=== PATIENT | female | born 1945 | race Caucasian/White ===

== ENCOUNTER 2016-11-16 05:39 | Inpatient (IN) | payer OTHER ==
[2016-11-08 12:58] LABS: BASOPHILS 0.9 %; BASOPHILS ABSOLUTE 0.09 10/3/uL (0.0-0.16); HEMATOCRIT 42.5 % (36.0-48.0); HEMOGLOBIN 13.7 g/dL (12.0-16.0); IMMATURE GRANULOCYTES 0.2 %; IMMATURE GRANULOCYTES ABSOLUTE 0.02 10/3/uL (0.0-0.11); LYMPHOCYTES ABSOLUTE 3.03 10/3/uL (0.67-4.30); MEAN CORPUS HGB CONC 32.2 g/dL (32.0-36.0); MEAN CORPUSCULAR HEMOGLOB 29.7 pg (26.0-34.0); MEAN PLATELET VOLUME 9.8 fL (9.2-13.0); MONOCYTES 6.1 %; NEUTROPHILS 59.8 %; NEUTROPHILS ABSOLUTE 5.84 10/3/uL (2.02-8.40); PLATELET COUNT 303 10/3/uL (150-400); RBC DISTRIBUTION WIDTH 14.3 % (12.0-16.0); RED CELL COUNT 4.62 10/6/uL (4.0-5.6); WHITE BLOOD CELLS 9.8 10/3/uL (4.5-10.5)
[2016-11-08 12:59] LABS: MANUAL DIFF NO %
[2016-11-08 13:06] LABS: INTERNATIONAL NORMAL RATI 1.1 UNITS (-); PARTIAL THROMBO TIME 32.1 SEC (22.5-37.2); PROTIME (NOT ORD) 13.7 SEC (12.0-14.5)
[2016-11-08 13:28] LABS: ALBUMIN 3.5 G/DL (3.5-5.0); BUN (BLOOD UREA NITROGEN) 9 MG/DL (6-23); CALCIUM, SERUM 8.8 MG/DL (8.5-10.4); CHLORIDE, SERUM 109 MMOL/L (96-112); CO2 (CARBON DIOXIDE) 29 MMOL/L (24-34); CREATININE 0.72 MG/DL (0.55-1.02); GFR AFRICAN AMERICAN 96 ML/MIN (>=60); GFR NON AFRICAN AMERICAN 83 ML/MIN (>=60); GLOBULIN 3.4 G/DL (2.5-4.1); GLUCOSE, SERUM 90 MG/DL (60-99); POTASSIUM, SERUM 3.7 MMOL/L (3.5-5.3); SGOT(AST) 14 U/L (5-40); SGPT(ALT) 17 U/L (5-65); SODIUM, SERUM 142 MMOL/L (135-148); TOTAL BILIRUBIN 0.4 MG/DL (0-1.2); TOTAL PROTEIN 6.9 G/DL (6.0-8.5)
[2016-11-08 13:29] LABS: ALKALINE PHOSPHATASE 82 U/L (45-117)
--- NOTE | ~2016-11-16 | DS ---
Discharge Summary [facility] [address] [place]. [address] NAME: GALILEO ALVA : 41 STATUS : DIS IN PAT#: [id number] AGE: 71 ADM/REG DATE : 11/16/16 MR#: [id number] REPORT SERV DATE: 12/01/16 DICTATED BY: ROSI BRANTLEY III DATE: 12/01/16 REPORT STATUS : Draft TRANSCRIBED BY: KWAME DATE: 12/01/16 Data Collection from hospitalization DISCHARGE DIAGNOSES: 1. 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 2. 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 3. Former smoker. 4. Chronic obstructive pulmonary disease. CONSULTATIONS: None. PROCEDURES PERFORMED: Laparoscopic resection of the terminal ileum with appendectomy, and primary anastomosis on 11/16/2016. PATHOLOGY: Terminal ileum resection-Crohn's disease, resection margins negative, incidental appendectomy-no diagnostic change. DISCHARGE MEDICATIONS: Tylenol 1000 mg every six hours as needed, Fosamax 70 mg every seven days, Biotin capsule one daily, Caltrate +D 1200 mg daily, vitamin D 50,000 units weekly, Advair Diskus one puff via inhaler twice a day, and Percocet 7.5/325 one tablet three times a day as needed. CONDITION AT DISCHARGE: Stable. DISPOSITION: The patient was discharged home on a full liquid diet that would be advanced as tolerated and activities as instructed. She would follow up with me on 12/06/2016. She was to follow up with her primary care physician as needed. HOSPITAL COURSE: This is a 71-year-old female, who was recently found to have a severe stricture of the terminal ileum with a mass like affect. It was of concern that this could represent a primary malignancy. The patient had been asymptomatic in terms of pain and abdominal discomfort. It was felt that laparoscopic resection of the involved portion of ileum, possible laparotomy, and possible resection of the proximal right colon was indicated. She agreed to proceed and was admitted to the hospital at this time for further evaluation and treatment. Upon admission, she was taken to the operating room where she underwent the above-mentioned procedure. She tolerated this well. There were no complications. On postop day #1, she had no new complaints. She was alert and comfortable. She was started on clear liquids. Addison catheter was going to be removed. On 11/18/2016, she had no new complaints. She was tolerating clear liquids well. She was progressing well. We were going to advance her diet. She was evaluated by Physical Therapy. On 11/19/2016, she did have some nausea and vomiting. Her abdomen was soft. Reglan was given. She was held n.p.o. Discharge planning was performed. She was beginning to pass some gas. NG tube was removed. Clear liquids were started. Reglan was continued. On 11/21/2016, she was wanting to go home. She was passing stool and tolerating her diet. Discharge instructions were given. Due to her improved and stable condition, she was discharged home with the above-stated instructions. Discharge Summary [place] [id number] [facility] [place] [address] NAME: GALILEO ALVA : 41 STATUS : DIS IN PAT#: [id number] AGE: 71 ADM/REG DATE : 11/16/16 MR#: [id number] REPORT SERV DATE: 12/01/16 DICTATED BY: ROSI BRANTLEY III DATE: 12/01/16 REPORT STATUS : Draft TRANSCRIBED BY: KWAME DATE: 12/01/16 Information collected by: Le Stanley I submit the above information as my discharge summary. TG/KWAME Rosi Brantley III, M.D. / [id number] CC: Kirill Lucas III, M.D.
--- NOTE | ~2016-11-16 | OP ---
Record Of Operation [facility] [address] [place]. [address] NAME: GALILEO ALVA : 41 STATUS : ADM IN PAT#: [id number] AGE: 71 ADM/REG DATE : 11/16/16 MR#: [id number] REPORT SERV DATE: 11/16/16 DICTATED BY: ROSI BRANTLEY III DATE: 11/16/16 REPORT STATUS : Draft TRANSCRIBED BY: MODL DATE: 11/16/16 DATE OF PROCEDURE: 11/16/2016 PREOPERATIVE DIAGNOSIS: Mass of the terminal ileum with stricture. POSTOPERATIVE DIAGNOSIS: Mass of the terminal ileum with stricture, severe inflammatory bowel disease of terminal ilium. PROCEDURE: Laparoscopic resection of the terminal ilium with appendectomy, and primary anastomosis. SURGEON: Rosi Brantley M.D. ANESTHESIA: General with intubation. COMPLICATIONS: None. ESTIMATED BLOOD LOSS: 30 mL. SPECIMENS: Segment of terminal ileum and appendix. DRAINS: [place] in subcutaneous tissue. LAP AND SPONGE COUNT: Correct x3. BRIEF HISTORY: This 71-year-old female was recently found to have a severe stricture of the terminal ilium with a masslike affect. It was of concern that this could represent a primary malignancy. The patient was asymptomatic in terms of pain and abdominal discomfort. It was felt that laparoscopic resection of the involved portion of the ilium, possible laparotomy, possible resection of the proximal right colon was indicated. This procedure, the risks, benefits, and alternatives, including but not limited to the risk for bleeding, infection, enterotomy, injury to any abdominal structure, postop small bowel obstruction, ileus, incisional hernia, dehiscence, anastomotic leak, requiring reoperation with ileostomy, ureteral injury, possible need for laparotomy, and unforeseen complications including deep venous thrombosis, pulmonary embolus, myocardial infarction, stroke, pneumonia, and were fully and completely explained to the patient and family at length prior to the surgery. The fact that this was a major operation with risk for major morbidity and mortality was explained as well as expected length of recovery with both open and laparoscopic procedures. The patient and family had questions, which were answered. They fully understood the risks and agreed to the surgery as planned. FINDINGS: The patient had a large mass of the terminal ileum. The involved segment was some 10 cm in length. The segment of the terminal ileum was very thickened with mesentery, which was foreshortened, and with fat wrapping around the area all consistent with severe inflammatory bowel disease. There was no evidence for peritoneal implants or carcinomatosis. This appeared to be consistent with probable Crohn's disease. The margins Record Of Operation [facility] [address] [place]. [address] NAME: GALILEO ALVA : 41 STATUS : ADM IN PAT#: [id number] AGE: 71 ADM/REG DATE : 11/16/16 MR#: [id number] REPORT SERV DATE: 11/16/16 DICTATED BY: ROSI BRANTLEY III DATE: 11/16/16 REPORT STATUS : Draft TRANSCRIBED BY: MODLiseth DATE: 11/16/16 were clear grossly. An appendectomy was incidentally performed. DESCRIPTION OF PROCEDURE: After being properly identified and after appropriate bowel preparation at home, and after discussing the risks and benefits of the surgery with the patient and family again in the preoperative area, she was taken to the operating room, and placed in supine position on the operating room table. General anesthesia was administered, and she was intubated without difficulty. A Addison catheter was inserted. The abdomen was prepped and draped sterilely in the usual fashion. After an appropriate "time-out" per JCAHO standards, a small incision was made just below the umbilicus transversely. The skin and fascia on either sides were elevated with towel clips. A Veress needle was placed through the incision into the peritoneal cavity. Correct position of the needle in peritoneal cavity was confirmed by the hanging drop test. The abdominal cavity was then insufflated to about 13 mmHg with carbon dioxide. Correct position of air in the peritoneal cavity was confirmed by palpation. The Veress needle was removed and replaced with a 10 mm trocar. The laparoscope was placed through this. The patient was rotated slightly to her left. A 5 mm trocar was placed in the midline, midway between the umbilicus and xiphoid process, under direct vision with the laparoscope, another 5 mm trocar was placed in the suprapubic area, also under direct vision with the laparoscope. The abdomen was inspected. The right colon and cecum appeared to be normal. We identified an area of the distal ilium which was markedly abnormal. It was very thickened and hard and inflamed. No other abnormalities were noted. There was no evidence for carcinomatosis or peritoneal implants. The liver was normal. The appropriate instruments were placed through the trocars. The cecum was grasped and retracted medially. Using sharp dissection, peritoneal reflection to the right colon proximally was divided along the line of [place]. The colon was mobilized medially. The terminal ileum was also mobilized by dividing the peritoneal reflection in the right lower quadrant. After adequate mobilization was obtained, a small vertical incision was made along the right lateral abdominal wall just above the terminal ileum. The trocars were removed. The incision was continued through the subcutaneous tissue. Hemostasis was controlled with the cautery. The incision was continued through all layers of fascia. The terminal ileum was mobilized into the wound. The above findings were confirmed. There was a defined definite segment terminal ileal about 8 cm to 10 cm in length, which was hard, markedly thickened and inflamed with fat wrapping around it all consistent with probable inflammatory bowel disease. The distal ileum appeared to be spared, about 4 cm to 5 cm proximal to the ileocecal valve. The proximal small bowel was inspected to the ligament of Treitz, and the remainder of the bowel was normal with no other abnormalities noted. We then selected a point for division of the terminal ileum proximal and distal to this inflammatory mass. A window was made in the mesentery to the ileum proximally and distally, and a DEISY stapler was used to divide the ileum proximally and distally at these points. The distal division was about 4 cm to 5 cm proximal to the ileocecal valve which we felt we could preserve if frozen section revealed this to be a benign process. The mesentery to this portion of small bowel was then divided along its base, using Harmonic scalpel. This was done along the base of the mesentery to perform a correct oncologic dissection of the lymphovascular supply to this portion of the terminal ileum in the event Record Of Operation [place] [id number] [facility] [address] [address] NAME: GALILEO ALVA : 41 STATUS : ADM IN PAT#: [id number] AGE: 71 ADM/REG DATE : 11/16/16 MR#: [id number] REPORT SERV DATE: 11/16/16 DICTATED BY: ROSI BRANTLEY III DATE: 11/16/16 REPORT STATUS : Draft TRANSCRIBED BY: MODL DATE: 11/16/16 that this was malignant. The terminal ileum was thus removed and oriented with a suture distally. This was sent to Pathology and interpreted as being benign process. We then performed a functional end-to-end anastomosis in a [id number] fashion between the divided terminal ileum proximally, and the terminal ileum just proximal to the ileocecal valve. This was performed by aligning the antimesenteric border of the small bowel proximally and distally with interrupted 3-0 silk sutures. A small opening was then made in the antimesenteric border of the small bowel proximally and distally. A DEISY stapler was placed through this and fired. The defect created by the stapler was then closed with a TA- 60 stapler. This staple line was oversewn with interrupted 3-0 silk sutures. Upon completion of this, the "crotch" anastomosis was secured with 3-0 silk sutures. The mesenteric defect was closed with a running 3-0 chromic suture. Upon completion of this, the anastomosis was widely patent to palpation. It was not twisted or kinked in any way. It was not under any tension. Again, the staple line was oversewn with interrupted 3-0 silk sutures. The appendix was then mobilized. Although, it was normal and it was felt that removal of this was indicated. The mesoappendix was divided using the Harmonic scalpel. The appendix was then divided at its base with a GI stapler. The appendiceal stump was inverted with 3-0 silk sutures. The entire area was irrigated copiously with saline. Hemostasis was assured. This was reduced back into the abdominal cavity. Hemostasis was completely assured. The fascia of this incision was closed with a running looped #1 PDS suture in two layers. The subcutaneous tissue was closed with a running 3-0 chromic suture over a Rk drain, which was brought out through the inferior aspect of the incision. The fascia of the infraumbilical incision was closed with a 0 Vicryl suture. All skin incisions were closed with running subcuticular 4-0 Monocryl stitches. They were injected with 0.5% Marcaine. Dressings were applied. Anesthesia was reversed, and the patient was taken to the recovery room in stable condition. She tolerated the procedure well. Her family was informed the results of the surgery. The patient will remain in the hospital for postoperative care. TYLER/KWAME Rosi Brantley III, M.D. / [id number] CC: Kirill Lucas III, M.D.
--- NOTE | ~2016-11-16 | PREOPHP ---
PreOp History and Physical [address] [place]. [address] NAME: GALILEO MILTON : 41 STATUS : PRE IN PAT#: [id number] AGE: 71 ADM/REG DATE : MR#: [id number] REPORT SERV DATE: 11/15/16 DICTATED BY: ROSI BRANTLEY III DATE: 10/28/16 REPORT STATUS : Draft TRANSCRIBED BY: MODL DATE: 10/28/16 HISTORY OF PRESENT ILLNESS: This 71-year-old female comes to the operating room for laparoscopic small bowel resection, possible laparotomy, for a stricture of the distal small bowel. The patient recently had a CT scan of the abdomen and pelvis for evaluation of hematuria. This CT scan showed an abnormal loop of distal small bowel. Further workup including small bowel series shows a stricture of the distal small bowel. The patient has minimal symptoms. She has occasional lower abdominal pain. This stricture is very abnormal and has a concern for a possible malignancy versus inflammatory bowel disease. It was felt that resection of this area was indicated for both diagnostic and therapeutic reasons. The patient has had no nausea, vomiting, fever, chills. Because of the concerns radiographically regarding this lesion, the patient comes now for laparoscopic small bowel resection, possible laparotomy, involving the distal small bowel and possibly the proximal right colon. PAST MEDICAL HISTORY: Unremarkable otherwise. MEDICATIONS: Vitamins. FAMILY HISTORY: Unremarkable. PAST SURGICAL HISTORY: None. SOCIAL HISTORY: The patient has history of tobacco abuse. ALLERGIES: NONE. REVIEW OF SYSTEMS: The patient has a history of weight loss and kidney stones. PHYSICAL EXAMINATION: GENERAL: Reveals a female, in no acute distress. She is alert and oriented x3. VITAL SIGNS: Blood pressure 125/79, pulse 96, temperature 97. HEENT: Unremarkable. NEUROLOGIC: Cranial nerves 2 through 12 were normal. LUNGS: Clear. CARDIAC: Normal. ABDOMEN: Soft and nontender. EXTREMITIES: Normal. LABORATORY DATA: Small bowel series shows a narrowed segment of distal ileum just proximal to the terminal ileum. There is associated mucosal irregularity involving this narrowed segment, which appears to be approximately 15-20 cm in length. The ileal loop immediately proximal to this is mildly dilated consistent with a CT scan performed on 09/29/2016. The differential diagnosis could include post or current inflammatory bowel disease or PreOp History and Physical [address] [place]. [address] NAME: GALILEO MILTON : 41 STATUS : PRE IN PAT#: [id number] AGE: 71 ADM/REG DATE : MR#: [id number] REPORT SERV DATE: 11/15/16 DICTATED BY: ROSI BRANTLEY III DATE: 10/28/16 REPORT STATUS : Draft TRANSCRIBED BY: MODL DATE: 10/28/16 underlying neoplastic process such as lymphoma. ASSESSMENT: A 71-year-old female with distal small bowel stricture, concern for possible occult malignancy versus inflammatory bowel disease. PLAN: The patient comes to the operating room now for laparoscopic resection of the involved portion of the terminal ilium, which may include the proximal right colon. The fact that this is a major operation with risk for major morbidity and mortality has been explained to the patient. The procedure, risks, benefits, and alternatives, including but not limited to the risks for bleeding, infection, enterotomy, injury to abdominal structure, postop small bowel obstruction, ileus, incisional hernia, dehiscence, anastomotic leak, resulting in peritonitis, sepsis, and , and requiring reoperation, ureteral injury, possible need for laparotomy, possible need for removal of the proximal portion of the right colon and unforeseen complications including deep venous thrombosis, pulmonary embolus, myocardial infarction, stroke, pneumonia, and , have been explained to the patient prior to surgery. The fact that this is a major operation with risk for major morbidity and mortality has been explained to her. The expected length of recovery with both open and laparoscopic procedures has been explained. The patient's questions have been answered. She clearly understands the risks and agrees to surgery as planned. ADDENDUM: It should be noted that Ms. Milton has had a current colonoscopy, her last colonoscopy being approximately four years ago. This showed no significant abnormality. RHJ/KWAME oRsi Brantley III, M.D. / [id number] CC: Kirill Lucas III, M.D.
[~2016-11-16 05:39] MED LIST: ADVAIR250 INH; CALTRA600D PO; FOSAMAX70 MG PO; HARD NAILS PO; VITD PO
[2016-11-17 06:13] LABS: BASOPHILS 0.1 %; BASOPHILS ABSOLUTE 0.01 10/3/uL (0.0-0.16); EOSINOPHILS 0.1 %; EOSINOPHILS ABSOLUTE 0.01 10/3/uL (0.0-0.53); HEMOGLOBIN 12.9 g/dL (12.0-16.0); IMMATURE GRANULOCYTES 0.3 %; IMMATURE GRANULOCYTES ABSOLUTE 0.05 10/3/uL (0.0-0.11); LYMPHOCYTES 23.4 %; MEAN CORPUS HGB CONC 32.3 g/dL (32.0-36.0); MEAN CORPUSCULAR HEMOGLOB 29.8 pg (26.0-34.0); MEAN CORPUSCULAR VOLUME 92.4 fL (80-100); MEAN PLATELET VOLUME 9.8 fL (9.2-13.0); MONOCYTES 8.8 %; MONOCYTES ABSOLUTE 1.32 10/3/uL (0.21-1.20); NEUTROPHILS 67.3 %; NEUTROPHILS ABSOLUTE 10.06 10/3/uL (2.02-8.40); PLATELET COUNT 278 10/3/uL (150-400); RBC DISTRIBUTION WIDTH 14.2 % (12.0-16.0); RED CELL COUNT 4.33 10/6/uL (4.0-5.6)
[2016-11-17 06:16] LABS: MANUAL DIFF NO %
[2016-11-17 06:23] LABS: CHLORIDE, SERUM 108 MMOL/L (96-112); CO2 (CARBON DIOXIDE) 29 MMOL/L (24-34); CREATININE 0.74 MG/DL (0.55-1.02); GFR AFRICAN AMERICAN 93 ML/MIN (>=60); GFR NON AFRICAN AMERICAN 80 ML/MIN (>=60); POTASSIUM, SERUM 4.2 MMOL/L (3.5-5.3); SODIUM, SERUM 142 MMOL/L (135-148)
[2016-11-17 06:24] LABS: BUN (BLOOD UREA NITROGEN) 3 MG/DL (6-23); CALCIUM, SERUM 7.7 MG/DL (8.5-10.4); GLUCOSE, SERUM 119 MG/DL (60-99)
[2016-11-18 07:14] LABS: BASOPHILS 0.3 %; BASOPHILS ABSOLUTE 0.03 10/3/uL (0.0-0.16); EOSINOPHILS 1.2 %; EOSINOPHILS ABSOLUTE 0.14 10/3/uL (0.0-0.53); HEMATOCRIT 38.9 % (36.0-48.0); HEMOGLOBIN 12.7 g/dL (12.0-16.0); IMMATURE GRANULOCYTES 0.3 %; IMMATURE GRANULOCYTES ABSOLUTE 0.04 10/3/uL (0.0-0.11); LYMPHOCYTES ABSOLUTE 2.35 10/3/uL (0.67-4.30); MEAN CORPUS HGB CONC 32.6 g/dL (32.0-36.0); MEAN CORPUSCULAR HEMOGLOB 29.9 pg (26.0-34.0); MEAN CORPUSCULAR VOLUME 91.5 fL (80-100); MEAN PLATELET VOLUME 9.7 fL (9.2-13.0); MONOCYTES 7.1 %; MONOCYTES ABSOLUTE 0.84 10/3/uL (0.21-1.20); NEUTROPHILS 71.1 %; NEUTROPHILS ABSOLUTE 8.37 10/3/uL (2.02-8.40); PLATELET COUNT 246 10/3/uL (150-400); RBC DISTRIBUTION WIDTH 14.5 % (12.0-16.0); RED CELL COUNT 4.25 10/6/uL (4.0-5.6); WHITE BLOOD CELLS 11.8 10/3/uL (4.5-10.5)
[2016-11-18 07:15] LABS: MANUAL DIFF NO %
[2016-11-18 07:24] LABS: BUN (BLOOD UREA NITROGEN) 4 MG/DL (6-23); CALCIUM, SERUM 7.9 MG/DL (8.5-10.4); CHLORIDE, SERUM 109 MMOL/L (96-112); CO2 (CARBON DIOXIDE) 27 MMOL/L (24-34); CREATININE 0.45 MG/DL (0.55-1.02); GFR AFRICAN AMERICAN 115 ML/MIN (>=60); GFR NON AFRICAN AMERICAN 99 ML/MIN (>=60); GLUCOSE, SERUM 99 MG/DL (60-99); SODIUM, SERUM 141 MMOL/L (135-148)
[2016-11-20 06:09] LABS: BASOPHILS 0.2 %; BASOPHILS ABSOLUTE 0.03 10/3/uL (0.0-0.16); EOSINOPHILS 1.2 %; EOSINOPHILS ABSOLUTE 0.16 10/3/uL (0.0-0.53); HEMATOCRIT 39.9 % (36.0-48.0); HEMOGLOBIN 13.2 g/dL (12.0-16.0); IMMATURE GRANULOCYTES 0.2 %; IMMATURE GRANULOCYTES ABSOLUTE 0.03 10/3/uL (0.0-0.11); LYMPHOCYTES 22.7 %; LYMPHOCYTES ABSOLUTE 3.06 10/3/uL (0.67-4.30); MEAN CORPUS HGB CONC 33.1 g/dL (32.0-36.0); MEAN CORPUSCULAR HEMOGLOB 29.8 pg (26.0-34.0); MEAN CORPUSCULAR VOLUME 90.1 fL (80-100); MEAN PLATELET VOLUME 9.9 fL (9.2-13.0); MONOCYTES 7.9 %; MONOCYTES ABSOLUTE 1.06 10/3/uL (0.21-1.20); NEUTROPHILS 67.8 %; NEUTROPHILS ABSOLUTE 9.16 10/3/uL (2.02-8.40); PLATELET COUNT 312 10/3/uL (150-400); RED CELL COUNT 4.43 10/6/uL (4.0-5.6); WHITE BLOOD CELLS 13.5 10/3/uL (4.5-10.5)
[2016-11-20 06:10] LABS: MANUAL DIFF NO %
[2016-11-20 06:19] LABS: BUN (BLOOD UREA NITROGEN) 5 MG/DL (6-23); CALCIUM, SERUM 8.1 MG/DL (8.5-10.4); CHLORIDE, SERUM 101 MMOL/L (96-112); CREATININE 0.61 MG/DL (0.55-1.02); GFR AFRICAN AMERICAN 104 ML/MIN (>=60); GFR NON AFRICAN AMERICAN 90 ML/MIN (>=60); POTASSIUM, SERUM 3.6 MMOL/L (3.5-5.3); SODIUM, SERUM 137 MMOL/L (135-148)
[2016-11-20 06:21] LABS: CO2 (CARBON DIOXIDE) 33 MMOL/L (24-34); GLUCOSE, SERUM 126 MG/DL (60-99)
[2016-11-21] MEDS ORDERED: PERCOCET 7.5/321 TAB PO (09:37)
[2016-11-21] MEDS ORDERED: ACET500CAP PO (09:37)
== END 2016-11-21 10:02 | disposition home or self-care (01) | DRG 342 ==
LOC: SDC/OF 05:39 → PACU 10:04 → 5SO 13:33
PROVIDERS: Surgery
PROC: 0DBB4ZZ Excision of Ileum, Percutaneous Endoscopic Approach (ICD-10-PCS; principal; 2016-11-16 08:00)
PROC: 0DTJ4ZZ Resection of Appendix, Percutaneous Endoscopic Approach (ICD-10-PCS; 2016-11-16 08:00)
DX: K50.012 Crohn's disease of small intestine with intestinal obstruction (principal); K56.7 Ileus, unspecified; J44.9 Chronic obstructive pulmonary disease, unspecified; K58.9 Irritable bowel syndrome, unspecified; F17.210 Nicotine dependence, cigarettes, uncomplicated
CPT/HCPCS: 36415; 71020; 74000; 80048; 80053; 85025; 85610; 85730; 86850; 86900; 86901; 88302; 88309; 93005; 94640; 97161-GP; A9270-GY; J0690; J2250; J2405; J2550; J2710; J2765; J2795; J3010